=== PATIENT | female | born 1955 | race Caucasian/White ===

== ENCOUNTER 2025-09-22 11:41 | Emergency (ER) | payer MEDICARE ==
[2025-09-22 13:45] LABS: Glucose, Urine (Dipstick) Normal (Negative); Leukocyte 100 (Negative); Protein, Urine (Dipstick) Negative (Neg-Trace); Specific Gravity, Urine 1.015 (1.005-1.030)
[2025-09-22 13:58] LABS: RBC/HPF None Seen HPF (0-3)
[2025-09-22 13:59] LABS: Bacteria/HPF Rare-Few HPF (None Seen); CAUTI Indications for Culture Dysuria,urgency,freq; WBC/HPF 0-3 HPF (0-3)
[2025-09-22 14:00] LABS: Urine Culture Reflex No No
== END 2025-09-22 14:42 | disposition home or self-care (01) ==
LOC: CSHERS 11:41
DX: J06.9 Acute upper respiratory infection, unspecified (principal)
CPT/HCPCS: 71045; 81001; 87428